=== PATIENT | male | born 1995 | race Caucasian/White ===

== ENCOUNTER 2021-03-29 20:44 | Emergency (ER) | payer SELFPAY ==
[2021-03-29] MEDS ORDERED: Ondansetron 4 MG Tab.DIS PO ONE (21:13)
[2021-03-29 22:29] LABS: CORONAVIRUS COVID-19 NAA POSITIVE (NEGATIVE)
== END 2021-03-29 22:50 | disposition home or self-care (01) ==
LOC: JD.ED 20:44
DX: U07.1 COVID-19 (principal)
CPT/HCPCS: 0241U; 36415; 80053; 83690; 85025; 99284; A9270